=== PATIENT | female | born 1970 | race Caucasian/White ===

== ENCOUNTER 2017-03-20 09:24 | Day surgery (SDC) | payer BC ==
[~2017-03-20] VITALS: Ht 165.1 cm; Wt 88.9 kg
[~2017-03-20 09:24] MED LIST: CEFAZOLIN SOD 1 GM/ ISO 50 ML PREMIX IV ONE
[2017-03-20] MEDS ORDERED: KETOROLAC TROMETHAMINE 30 MG VIAL IVP ONE (09:25)
[2017-03-20] MEDS ORDERED: fentaNYL CITRATE/PF 100 MCG/2 ML AMP IVP ONE (09:25)
[2017-03-20] MEDS ORDERED: METOCLOPRAMIDE HCL 10 MG/2 ML VIAL IVP ONE (09:25)
[2017-03-20] MEDS ORDERED: SEVOFLURANE 15 MIN GAS INH ONE (09:25)
[2017-03-20] MEDS ORDERED: BUPIVACAINE /PF 0.5% 30 ML VIAL INJ ONE (09:25)
[2017-03-20] MEDS ORDERED: DEXAMETHASONE SOD PHOSPHATE 4 MG/ML VIAL IVP ONE (09:25)
[2017-03-20] MEDS ORDERED: LR 1,000 ML IV.SOLN IV ONE (09:25)
[2017-03-20] MEDS ORDERED: MEPERIDINE HCL/PF 100 MG/ML AMP IM ONE (09:25)
[2017-03-20] MEDS ORDERED: PROPOFOL 200MG/ 20ML VIAL (DIPRIVAN) IV ONE (09:25)
[2017-03-20] MEDS ORDERED: MIDAZOLAM HCL 5 MG/ML VIAL (VERSED) IV ONE (09:25)
[2017-03-20] MEDS ORDERED: NS IRRIG SOLN 1000 ML IR ONE (09:25)
[2017-03-20 10:28] LABS: HCG,QUAL RESULT NEGATIVE (NEGATIVE)
[2017-03-20] MEDS ORDERED: LR 1,000 ML IV ONE (14:43)
[2017-03-20] MEDS ORDERED: fentaNYL CITRATE/PF 100 MCG/2 ML AMP IVP PRN (14:45)
[2017-03-20] MEDS ORDERED: NALBUPHINE HCL 10 MG/ML AMP IVP PRN (14:45)
[2017-03-20] MEDS ORDERED: ePHEDrine sulfate 50 MG/ML VIAL IVP PRN (14:45)
[2017-03-20] MEDS ORDERED: ONDANSETRON HCL 4 MG/2 ML VIAL IVP PRN ×2 (14:45)
[2017-03-20] MEDS ORDERED: NALOXONE HCL 0.4 MG/ML AMP (NARCAN) IVP PRN (14:45)
[2017-03-20] MEDS ORDERED: DIPHENHYDRAMINE INJ 50 MG/ML VIAL IVP PRN (14:45)
[2017-03-20] MEDS ORDERED: D5/0.45 NS 1,000 ML IV SCH (14:53)
[2017-03-20] MEDS ORDERED: HYDROcodone/ACETAMIN 5-325 MG TAB (NORCO/ VICODIN) PO PRN ×2 (15:00)
[2017-03-20] MEDS ORDERED: HYDROmorphone 1 MG INJ. 1 MG/ML AMPUL IVP PRN (15:00)
[2017-03-20 15:59] VITALS: BP_SYST 130
== END 2017-03-20 17:00 | disposition home or self-care (01) ==
LOC: SMU 09:24 → SDS 09:24 → EDSTATUS 13:30 → SDS 17:00
PROVIDERS: ATTEND Colon & Rectal Surgery
DX: D24.2 Benign neoplasm of left breast (principal); E55.9 Vitamin D deficiency, unspecified; Z90.49 Acquired absence of other specified parts of digestive tract; Z98.890 Other specified postprocedural states; Z82.49 Family history of ischemic heart disease and other diseases of the circulatory system; Z80.8 Family history of malignant neoplasm of other organs or systems; Z68.32 Body mass index [BMI] 32.0-32.9, adult; Z79.899 Other long term (current) drug therapy
CPT/HCPCS: 19120; 19281; 76098; 84703; 88305; J0690; J1100; J1885; J2175; J2250; J2704; J2765; J3010; J3490; J7120